=== PATIENT | male | born 1955 | race Caucasian/White ===

== ENCOUNTER 2021-09-14 13:55 | Observation (INO) | payer MEDICARE, OTHER ==
[2021-09-14] MEDS ORDERED: HYDROcodone/Acetaminophen 5/325 mg Tablet PO PRN (14:05)
[2021-09-14] MEDS ORDERED: cloNIDine 0.1 MG TAB ONE (15:08)
[2021-09-14] MEDS ORDERED: HYDROcodone/Acetaminophen 10/325 mg Tablet ONE (15:29)
[2021-09-14] MEDS ORDERED: HYDROcodone/Acetaminophen 5/325 mg Tablet ONE (15:30)
[2021-09-14 17:56] VITALS: BMI 25.7
[2021-09-14] MEDS ORDERED: VANCOMYCIN 1.75 GM/350 ML BAG 1.75 GM in Premix Bag 1 BAG IVPB SCH (18:00)
[2021-09-14] MEDS ORDERED: Cefepime 1 GM in Sodium Chloride 0.9% 100 ML IVPB SCH (18:15)
[2021-09-14] MEDS: HYDROcodone/Acetaminophen 5/325 mg Tablet PO PRN (19:49)
[2021-09-14] MEDS ORDERED: Vancomycin 1.5 GRAM/300 ML BAG 1.5 GM in Premix Bag 1 BAG IVPB SCH (21:00)
[2021-09-14] MEDS: Ondansetron PF 4 MG/2 ML Vial IVP PRN (23:15)
[2021-09-15] MEDS ORDERED: Morphine 2 MG/ML VIAL SLOW IVP PRN (00:03)
[2021-09-15] MEDS ORDERED: Morphine 4 MG/ML VIAL SLOW IVP SCH (00:15)
[2021-09-15] MEDS: Cefepime 1 GM in Sodium Chloride 0.9% 100 ML IVPB SCH ×2 (04:43→12:12)
[2021-09-15] MEDS ORDERED: hydrALAZINE 20 MG/ML VIAL SLOW IVP PRN (04:50)
[2021-09-15] MEDS ORDERED: Nitroglycerin 2% Ointment 1 INCH/1 GM Packet TOP SCH (05:00)
[2021-09-15] MEDS ORDERED: Promethazine HCl 12.5 MG, Admixture Fee 1 EACH in Sodium Chloride 0.9% 50 ML IVPB SCH (06:00)
[2021-09-15] MEDS: Ondansetron ODT 4 MG TAB PO PRN ×2 (07:38→14:31)
[2021-09-15] MEDS: HYDROcodone/Acetaminophen 5/325 mg Tablet PO PRN ×4 (08:53→23:37)
[2021-09-15] MEDS: Sodium Chloride 0.65% Nasal 44 ML BOT EA NARE SCH ×3 (08:54→20:41)
[2021-09-15] MEDS: Vancomycin HCl 1 GM in Sodium Chloride 0.9% 250 ML 250 ML IVPB SCH ×2 (08:54→20:41)
[2021-09-15] MEDS ORDERED: Amlodipine 10 MG TAB PO SCH (11:00)
[2021-09-15] MEDS ORDERED: Albuterol Sulfate 1.25 MG/3 ML NEB NEB PRN (20:12)
[2021-09-16] MEDS: HYDROcodone/Acetaminophen 5/325 mg Tablet PO PRN ×2 (03:17→07:15)
[2021-09-16] MEDS: Cefepime 1 GM in Sodium Chloride 0.9% 100 ML IVPB SCH (05:19)
[2021-09-16] MEDS: Ondansetron PF 4 MG/2 ML Vial IVP PRN (08:30)
[2021-09-16] MEDS: Sodium Chloride 0.65% Nasal 44 ML BOT EA NARE SCH (08:34)
[2021-09-16 08:41] LABS: Vancomycin, Trough 9.3 ug/mL
[2021-09-16 08:55] LABS: #Basophils 0.1 10x3/uL (0.0-0.2); #Eosinphils 0.1 10x3/uL (0.0-0.5); #Monocytes 0.9 10x3/uL (0.0-1.1); #Neutrophils 8.3 10x3/uL (1.5-8.4); %Basophils 0.5 % (0.0-2.0); %Eosinophils 1.2 % (0.0-6.0); %Lymphocytes 15.4 % (18.0-47.0); %Monocytes 7.7 % (0.0-10.0); %Neutrophils 74.8 % (40.0-75.0); Hemoglobin 13.4 g/dL (13.5-17.5); Mean Corpuscular HGB CONC 33.7 g/dL (32.0-36.0); Mean Corpuscular Hemoglobin 29.1 pg (27.0-33.0); Mean Corpuscular Volume 86.5 fl (81.2-95.1); Mean Platelet Volume 9.9 fl (7.4-10.4); Platelet Count 273 10x3/uL (150-450); RBC Distribution Width 14.3 % (11.5-14.5); White Blood Cell (WBC) Count 11.2 10x3/uL (3.5-10.5)
[2021-09-16] MEDS ORDERED: Amlodipine 10 MG TAB PO SCH (09:00)
[2021-09-16] MEDS ORDERED: Montelukast Sodium 10 mg Tablet PO SCH ×2 (09:00→21:00)
[2021-09-16] MEDS ORDERED: Levothyroxine Sodium 50 MCG TAB PO SCH (09:00)
[2021-09-16 09:08] LABS: Anion Gap 16 mmol/L (10-20); BUN (Urea Nitrogen) 11 mg/dL (8.4-25.7); Calc. Creatinine Clearance 112 mL/min (70-130); Calcium 9.4 mg/dL (7.8-10.44); Carbon Dioxide 21 mmol/L (23-31); Chloride 104 mmol/L (98-107); Glucose 113 mg/dL (80-115); Potassium 3.7 mmol/L (3.5-5.1); Sodium 137 mmol/L (136-145)
[2021-09-16] MEDS: Vancomycin HCl 1 GM in Sodium Chloride 0.9% 250 ML 250 ML IVPB SCH (09:16)
[2021-09-16] MEDS ORDERED: Scopolamine 1.5 mg/72 hour Patch TD SCH (11:00)
[2021-09-16] MEDS: Acetaminophen 325 MG TAB PO PRN ×2 (11:14→15:30)
[2021-09-16 16:05] VITALS: BP 135/80; TEMP 98.9
== END 2021-09-16 16:08 | disposition home or self-care (01) ==
LOC: CSHERS 13:55 → CSHTELE 16:02
PROVIDERS: ADMIT Otolaryngology Otolaryngic Allergy; ATTEND Otolaryngology Otolaryngic Allergy
DX: G96.00 Cerebrospinal fluid leak, unspecified (principal); R03.0 Elevated blood-pressure reading, without diagnosis of hypertension; Z98.890 Other specified postprocedural states; Z79.899 Other long term (current) drug therapy; J45.909 Unspecified asthma, uncomplicated; E03.9 Hypothyroidism, unspecified
CPT/HCPCS: 70450 ×2; 80048; 80202; 82565; 85025; 94760 ×3; 96374; 96375 ×3; 96376 ×2; 99284; G0378 ×4; J2270; 36415; 88305; J0360; J0692; J2405; J2550; J3370; J3490; J7050; Q0162

== ENCOUNTER 2023-03-25 08:27 | Outpatient (CLI) | payer MEDICARE, OTHER | END 2023-03-25 08:28 | disposition home or self-care (01) | LOC: CSHLAB 08:27 | PROVIDERS: ATTEND Surgery | DX: Z01.818 Encounter for other preprocedural examination (principal) | CPT/HCPCS: 93005; 93010 ==

== ENCOUNTER 2023-03-27 05:52 | Day surgery (SDC) | payer MEDICARE, OTHER ==
[2023-03-25 09:15] VITALS: BMI 25.7
[2023-03-27] MEDS ORDERED: Bupivacaine PF 0.5% 30 ML VIAL ONE (06:36)
[2023-03-27] MEDS ORDERED: EPINEPHrine 1 MG/ML VIAL ONE (06:36)
[2023-03-27] MEDS ORDERED: Rocuronium Bromide 10 MG/ML (10ML VIAL) ONE (07:00)
[2023-03-27] MEDS ORDERED: Lidocaine 2% PF 5 ML VIAL ONE (07:00)
[2023-03-27] MEDS ORDERED: Fentanyl 250 MCG/5 ML VIAL ONE (07:00)
[2023-03-27] MEDS ORDERED: Midazolam HCl 2 mg/2 ml Vial ONE (07:00)
[2023-03-27] MEDS ORDERED: PROPOFOL 20 ML ONE (07:00)
[2023-03-27] MEDS ORDERED: CEFAZOLIN 2 GM VIAL ONE (07:21)
[2023-03-27] MEDS ORDERED: SUGAMMADEX SODIUM 200 MG/2 ML VIAL ONE (07:22)
[2023-03-27] MEDS ORDERED: HYDROcodone/Acetaminophen 5/325 mg Tablet ONE (09:33)
[2023-03-27] MEDS ORDERED: Acetaminophen 325 MG TAB ONE ×2 (09:38→09:39)
[2023-03-27] MEDS ORDERED: traMADol HCl 50 MG TAB PO PRN (09:48)
== END 2023-03-27 10:25 | disposition home or self-care (01) ==
LOC: CSHSDC 05:52
PROVIDERS: ATTEND Surgery
PROC: 0YQ54ZZ Repair Right Inguinal Region, Percutaneous Endoscopic Approach (ICD-10-PCS; principal; 2023-03-27)
DX: K40.91 Unilateral inguinal hernia, without obstruction or gangrene, recurrent (principal); J45.909 Unspecified asthma, uncomplicated; I10 Essential (primary) hypertension; E03.9 Hypothyroidism, unspecified; Z88.6 Allergy status to analgesic agent; Z79.890 Hormone replacement therapy; Z79.899 Other long term (current) drug therapy
CPT/HCPCS: 49651; J0171; J2001; J2250; J2704; J3010; S0020